=== PATIENT | female | born 1970 | race Caucasian/White ===

== ENCOUNTER → 2020-02-18 17:53 | Outpatient (CLI) | payer MEDICARE, MEDICAID, SELFPAY ==
[2020-02-18 18:24] LABS: Iron 20 ug/dL (37-170)
[2020-02-18 18:27] LABS: Basophils % 0.4 % (0.1-2.0); Eosinophils # 0.1 K/mm3 (0.0-0.4); Eosinophils % 1.5 % (0.1-12.0); Hematocrit 31.5 % (37.0-47.0); Hemoglobin 9.3 g/dL (12.2-16.2); Lymphocytes # 1.8 K/mm3 (0.7-4.5); Lymphocytes % 24.7 % (10-50); Mean Corpuscular HGB Conc 29.5 g/dL (31.8-35.4); Mean Corpuscular Hemoglobin 19.9 pg (27.0-31.2); Mean Corpuscular Volume 67.3 fl (81-99); Mean Platelet Volume 7.4 fl (7.4-10.4); Monocytes # 0.6 K/mm3 (0.1-1.0); Neutrophils # 4.9 K/mm3 (1.8-7.8); Neutrophils % 65.3 % (37.0-80.0); Platelet Count 666 K/mm3 (142-424); Red Blood Count 4.69 M/mm3 (4.20-5.40); Red Cell Distribution Width 21.6 % (11.5-17.5); White Blood Count 7.5 K/mm3 (4.8-10.8)
[2020-02-18 18:33] LABS: Total Iron Binding Capacity 483 ug/dL (265-497)
== END ==
PROVIDERS: Visit Provider Family Medicine
DX: D64.9 Anemia, unspecified (principal)
CPT/HCPCS: 83540; 83550; 85025

== ENCOUNTER → 2021-06-29 17:34 | Outpatient (CLI) | payer MEDICARE, MEDICAID, SELFPAY ==
[2021-06-29 18:28] LABS: Basophils # 0.1 K/mm3 (0-0.2); Basophils % 0.6 % (0.1-2.0); Eosinophils # 0.1 K/mm3 (0.0-0.4); Eosinophils % 1.1 % (0.1-12.0); Hematocrit 29.2 % (37.0-47.0); Hemoglobin 8.4 g/dL (12.2-16.2); Lymphocytes # 2.5 K/mm3 (0.7-4.5); Lymphocytes % 27.2 % (10-50); Mean Corpuscular HGB Conc 28.7 g/dL (31.8-35.4); Mean Corpuscular Hemoglobin 17.8 pg (27.0-31.2); Mean Corpuscular Volume 62.1 fl (81-99); Mean Platelet Volume 7.7 fl (7.4-10.4); Monocytes # 0.6 K/mm3 (0.1-1.0); Monocytes % 6.2 % (1.7-9.3); Neutrophils % 64.9 % (37.0-80.0); Platelet Count 796 K/mm3 (142-424); Red Cell Distribution Width 19.6 % (11.5-17.5); White Blood Count 9.2 K/mm3 (4.8-10.8)
[2021-06-29 20:07] LABS: Alanine Aminotransferase 16 U/L (12-78); Albumin Level 4.3 g/dl (3.5-5.0); Albumin/Globulin Ratio 1.3 (1.1-1.8); Alkaline Phosphatase 75 U/L (38-126); Anion Gap 12.7 mEq/L (5-15); Aspartate Amino Transferase 30 U/L (14-36); Blood Urea Nitrogen 12 mg/dl (7-17); Calcium 9.5 mg/dl (8.4-10.2); Carbon Dioxide 28 mmol/L (22.0-30.0); Chloride 103 mmol/L (98-107); Estimated Glomerular Filt Rate 88 ml/min (>60); GFR (African American) 106 ML/MIN (>60); Globulin 3.3 g/dL (1.3-3.2); Glucose 101 mg/dl (74-100); Potassium 3.7 mmoL/L (3.5-5.1); Sodium 140 mmol/L (136-145); Total Protein,Serum 7.6 g/dl (6.3-8.2)
[2021-06-29 20:11] LABS: Bilirubin,Total 0.1 mg/dl (0.2-1.3)
[2021-06-29 20:12] LABS: Iron 10 ug/dL (37-170)
[2021-06-29 20:39] LABS: Thyroid Stimulating Hormone 0.76 uIU/mL (0.465-4.68)
[2021-06-29 20:45] LABS: Total Iron Binding Capacity 528 ug/dL (265-497)
== END ==
PROVIDERS: Visit Provider Family Medicine
DX: Z87.828 Personal history of other (healed) physical injury and trauma (principal); Z00.00 Encounter for general adult medical examination without abnormal findings; F41.9 Anxiety disorder, unspecified; E61.1 Iron deficiency
CPT/HCPCS: 80053; 83540; 83550; 84443; 85025

== ENCOUNTER → 2022-01-12 06:14 | Outpatient (CLI) | payer MEDICARE, MEDICAID, SELFPAY ==
[2022-01-11 17:07] LABS: Basophils # 0.1 K/mm3 (0-0.2); Basophils % 0.9 % (0.1-2.0); Eosinophils # 0.1 K/mm3 (0.0-0.4); Eosinophils % 2.1 % (0.1-12.0); Hematocrit 32.6 % (37.0-47.0); Hemoglobin 9.5 g/dL (12.2-16.2); Mean Corpuscular Hemoglobin 18.7 pg (27.0-31.2); Mean Corpuscular Volume 64.5 fl (81-99); Mean Platelet Volume 7.6 fl (7.4-10.4); Monocytes # 0.5 K/mm3 (0.1-1.0); Monocytes % 7.3 % (1.7-9.3); Neutrophils # 3.9 K/mm3 (1.8-7.8); Neutrophils % 59.7 % (37.0-80.0); Platelet Count 635 K/mm3 (142-424); Red Blood Count 5.06 M/mm3 (4.20-5.40); Red Cell Distribution Width 22.7 % (11.5-17.5); White Blood Count 6.6 K/mm3 (4.8-10.8)
[2022-01-11 17:28] LABS: Chloride 108 mmol/L (98-107); Potassium 3.8 mmoL/L (3.5-5.1); Sodium 140 mmol/L (136-145)
[2022-01-11 17:30] LABS: Alanine Aminotransferase 16 U/L (12-78); Aspartate Amino Transferase 42 U/L (14-36); Blood Urea Nitrogen 17 mg/dl (7-17); Estimated Glomerular Filt Rate 105 ml/min (>60); GFR (African American) 127 ML/MIN (>60)
[2022-01-11 17:31] LABS: Albumin Level 3.9 g/dl (3.5-5.0); Albumin/Globulin Ratio 1.2 (1.1-1.8); Alkaline Phosphatase 85 U/L (38-126); Bilirubin,Total 0.3 mg/dl (0.2-1.3); Globulin 3.2 g/dL (1.3-3.2); Glucose 119 mg/dl (74-100); Iron 25 ug/dL (37-170); Total Protein,Serum 7.1 g/dl (6.3-8.2)
[2022-01-11 17:32] LABS: Anion Gap 12.8 mEq/L (5-15); Carbon Dioxide 23 mmol/L (22.0-30.0)
[2022-01-11 17:40] LABS: Total Iron Binding Capacity 487 ug/dL (265-497)
[2022-01-11 17:41] LABS: Total Iron Binding Capacity 472 ug/dL (265-497)
[2022-01-11 18:07] LABS: Ferritin 4.26 ng/ml (11.1-264)
== END ==
PROVIDERS: PCP Family Medicine; Visit Provider Family Medicine
DX: E61.1 Iron deficiency (principal); Z87.828 Personal history of other (healed) physical injury and trauma
CPT/HCPCS: 80053; 82728; 83540; 83550; 85025

== ENCOUNTER → 2022-12-13 23:00 | Outpatient (CLI) | payer MEDICARE, MEDICAID, SELFPAY ==
[2022-12-13 18:20] LABS: Chloride 105 mmol/L (98-107); Sodium 140 mmol/L (136-145)
[2022-12-13 18:21] LABS: Basophils % 0.5 % (0.1-2.0); Eosinophils # 0.1 K/mm3 (0.0-0.4); Eosinophils % 1.1 % (0.1-12.0); Hematocrit 41.6 % (37.0-47.0); Hemoglobin 13.5 g/dL (12.2-16.2); Lymphocytes # 2.4 K/mm3 (0.7-4.5); Lymphocytes % 32.8 % (10-50); Mean Corpuscular HGB Conc 32.5 g/dL (31.8-35.4); Mean Corpuscular Hemoglobin 28.8 pg (27.0-31.2); Mean Corpuscular Volume 88.6 fl (81-99); Monocytes # 0.5 K/mm3 (0.1-1.0); Monocytes % 6.4 % (1.7-9.3); Neutrophils # 4.4 K/mm3 (1.8-7.8); Neutrophils % 59.1 % (37.0-80.0); Platelet Count 479 K/mm3 (142-424); Red Cell Distribution Width 13.6 % (11.5-17.5); White Blood Count 7.4 K/mm3 (4.8-10.8)
[2022-12-13 18:22] LABS: Alanine Aminotransferase 22 U/L (12-78); Aspartate Amino Transferase 28 U/L (14-36); Blood Urea Nitrogen 11 mg/dl (7-17); Estimated Glomerular Filt Rate 75 ml/min (>60); GFR (African American) 90 ML/MIN (>60)
[2022-12-13 18:23] LABS: Albumin Level 4.1 g/dl (3.5-5.0); Albumin/Globulin Ratio 1.2 (1.1-1.8); Alkaline Phosphatase 87 U/L (38-126); Bilirubin,Total 0.4 mg/dl (0.2-1.3); Calcium 9.2 mg/dl (8.4-10.2); Carbon Dioxide 22 mmol/L (22.0-30.0); Globulin 3.3 g/dL (1.3-3.2); Glucose 84 mg/dl (74-100); Iron 76 ug/dL (37-170); Total Protein,Serum 7.4 g/dl (6.3-8.2)
[2022-12-13 18:33] LABS: Total Iron Binding Capacity 362 ug/dL (265-497)
== END ==
PROVIDERS: PCP Family Medicine; Visit Provider Family Medicine
DX: I10 Essential (primary) hypertension (principal); D50.9 Iron deficiency anemia, unspecified
CPT/HCPCS: 80053; 83540; 83550; 85025

== ENCOUNTER 2025-05-13 10:21 | Outpatient (CLI) | payer MEDICARE, MEDICAID, SELFPAY ==
[2025-05-13 15:08] LABS: Hematocrit 35.5 % (37.0-47.0); Hemoglobin 12.0 g/dL (12.2-16.2); Immature Granulocytes % 0.2 %; Mean Corpuscular HGB Conc 33.8 g/dL (31.8-35.4); Mean Corpuscular Hemoglobin 30.4 pg (27.0-31.2); Mean Corpuscular Volume 89.9 fl (81-99); Nucleated Red Blood Cells % 0 %; Platelet Count 468 K/mm3 (142-424); Red Blood Count 3.95 M/mm3 (4.20-5.40); Red Cell Distribution Width-SD 44.5 fL; White Blood Count 6.0 K/mm3 (4.8-10.8)
[2025-05-13 16:38] LABS: Albumin Level 3.9 g/dl (3.5-5.0); Chloride 108 mmol/L (98-107); Potassium 3.7 mmoL/L (3.5-5.1); Sodium 139 mmol/L (136-145)
[2025-05-13 16:41] LABS: Alanine Aminotransferase 19 U/L (12-78); Albumin/Globulin Ratio 1.6 (1.1-1.8); Alkaline Phosphatase 98 U/L (38-126); Anion Gap 11.7 mEq/L (5-15); Aspartate Amino Transferase 26 U/L (14-36); Bilirubin,Total 0.5 mg/dl (0.2-1.3); Blood Urea Nitrogen 14 mg/dl (7-17); Carbon Dioxide 23 mmol/L (22.0-30.0); Cholesterol 134 mg/dl (140-200); Creatinine,Serum 0.80 mg/dl (0.52-1.04); Estimated Glomerular Filt Rate 74 ml/min (>60); GFR (African American) 90 ML/MIN (>60); Globulin 2.4 g/dL (1.3-3.2); Iron 51 ug/dL (37-170); Total Protein,Serum 6.3 g/dl (6.3-8.2); Triglycerides 133 mg/dl (30-150)
[2025-05-13 16:42] LABS: Calcium 8.7 mg/dl (8.4-10.2); Glucose 122 mg/dl (74-100); HDL Cholesterol 58 mg/dl (40-60)
[2025-05-13 16:53] LABS: Total Iron Binding Capacity 256 ug/dL (265-497)
--- OUTSIDE RECORDS SUMMARY | 2025-05-17 10:27 | XMS_ITS | Clinical Summary ---
Author Organization [facility] Address [address] [facility] [place] [address] Phone Care Team Providers Care Summer Camp Counselor Name Role Phone Roni De Dios MD Primary Care Provider [phone] Allergies No known active allergies Medications nebivolol (BYSTOLIC) 5 mg Oral Tablet Take 5 mg by mouth nightly. Active cyclobenzaprine (FLEXERIL) 10 mg Oral Tablet Take 10 mg by mouth daily. Active naproxen (NAPROSYN) 500 mg Oral Tablet Take 500 mg by mouth every 12 hours as needed for Pain. Active atorvastatin (LIPITOR) 20 mg Oral Tablet Take 20 mg by mouth daily. Active albuterol (PROVENTIL HFA;VENTOLIN HFA) 90 mcg/actuation Inhl HFA Aerosol Inhaler Inhale 2 Puffs into the lungs every 6 hours as needed for Wheezing. Active HYDROcodone-acet aminophen (NORCO) 5-325 mg Oral Tablet Take 1-2 Tabs by mouth every 4 hours as needed for Pain. 20 Tab 0 01/17/2015 Active Surgical History Surgery Date Site/Laterality Comments HIP SURGERY 1973 age 3 KNEE SURGERY Right as a teenager Medical History Medical History Date Comments Asthma Rapid heart beat placed on bysto lic Hyperlipidemia Acid reflux Arthritis knee Seasonal allergies Skin cancer forehead Family History Medical History Relation Name Comments Unknown Father Anesth Problems Neg Hx Relation Name Status Comments Father Mother Alive Social History Tobacco Use Types Packs/Day Years Used Date Smoking Tobacco: Never Smokeless Tobacco: Never Alcohol Use Standard Drinks/Week Comments Yes 0 (1 standard drink = 0.6 oz pur e alcohol) occassional Comments No Sex and Gender Information Value Date Recorded Sex Assigned at Not on file Legal Sex Female 10:17 PM EDT Gender Identity Not on file Sexual Orientation Not on file Last Filed Vital Signs Vital Sign Reading Time Taken Comments Blood Pressure 107/73 01/17/2015 9:31 AM EDT Pulse 93 01/17/2015 9:31 AM EDT Temperature 36.4 C (97.6 F) 01/17/2015 9:13 AM EDT Respiratory Rate 20 01/17/2015 9:31 AM EDT Oxygen Saturation 98% 01/17/2015 9:31 AM EDT Inhaled Oxygen Concentration - - Weight 71.7 kg (158 lb 1 oz) 01/17/2015 6:57 AM EDT Height 154.9 cm (5' 1 ) 01/13/2015 1:09 PM EDT Body Mass Index 29.87 01/13/2015 1:09 PM EDT Plan of Treatment Health Maintenance Due Date Last Done Comments Wellness Exam Medicare 1971 DTaP/TDaP/Td (1 - Tdap) 1987 Hepatitis B Vaccine (1 of 3 - 19+ 3-dose series) 1987 Cervical Cancer Screening 1989 Pap Smear 1989 HPV/Pap Cotest 1998 Cologuard 2013 FIT 2013 Sigmoidoscopy 2013 Virtual Colonography 2013 Breast Cancer Screening 02/28/2017 02/28/2015 Pneumococcal Vaccine 50+ (1 of 1 - PCV) 2018 Zoster (1 of 2) 2018 Colon Cancer Screening 04/16/2022 Colonoscopy 04/16/2022 04/16/2019 COVID-19 Vaccine (1 - 2024-2 6 season) 2025 Influenza Vaccine (#1) 2025 Meningococcal B Vaccine Aged Out No l onger eligible based on patient's age to complete this topic Procedures Procedure Name Priority Date/Time Associated Diagnosis Comments MM MAMMO DIGITAL SCREENING W CAD BILAT Routine 02/28/2015 12:58 PM EDT Other screening mammogram from Last 3 Months or Most Recently Relevant to Health Maintenance Results * MM MAMMO DIGITAL SCREENING W CAD BILAT (02/28/2015 12:58 PM EDT) Anatomical Region Laterality Modality Breast Bilateral Mammography 03/07/2015 10:4 0 AM EDT Impressions 03/10/2015 7:35 AM EDT : Incomplete-need additional imaging evaluation (IDR-Coktkthn-4) ~ RECOMMENDATION: Special view mammogram and ultrasound of the left breast. ~ * The patient with a palpable abnormality, unexplained by breast imaging, should be managed on clinical basis by the attending physician. * Breast imaging has a false negative rate of 15%. * The patient was notified by mail of the results of this examination. *The patient's information was entered into a reminder system with a target due date for the next mammogram. The mammogram was reviewed by a Radiologist and CAD. Narrative 03/10/2015 7:35 AM EDT Procedure:MM MAMMO DIGITAL SCREENING W CAD BILAT ~ Reason for exam: screening (asymptomatic). ~ MM MAMMO DIG SCREEN CAD BILAT Bilateral CC and MLO view(s) were taken. The breast tissue is heterogeneously dense. This may lower the sensitivity of mammography. There are benign appearing 1-2 cm oval densities with obscured margins in the left breast 6 and 12 o'clock positions. History of prior cysts on left documented by ultrasound. Compared to prior studies the most recent being 5--12. ~ Roni De Dios MD [facility] ORDER[facility]LES Final Result from Last 3 Months or Most Recently Relevant to Health Maintenance Insurance [place] [address] MEDICAID [place] Advance Directives For more information, please contact: [phone] * Full Code (Latest Code Status on File) Date Activated Date Inactivated Comments 01/17/2015 9:19 AM 01/17/2015 1:48 PM Care Teams Summer Camp Counselor Relationship Specialty Start Date End Date Roni De Dios MD PCP - General Family Medicine 12/27/14
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
--- OUTSIDE RECORDS SUMMARY | 2025-05-17 10:27 | XMS_ITS | Data Portability ---
Author Organization [facility] Address [address] [place] [address] Care Team Providers Care Stationary Plant Operators Name Role Phone KIMBERLYOMA Resendiz Primary Care Provider Assessment No assessment recorded. Plan of Treatment Reminders Order Date Submit Date Provider Last Modified By Organization Details Last Modified Time Details Appointments None recorde d. Lab None recorde d. Referral None recorde d. Procedures None recorde d. Surgeries None recorde d. Imaging XR, wrist 025 10/14/19 25 [email or web address] [facility] [address] [place] [address] [place], [address], 11:50:29 Medication Orders None recorde d. Patient TargetsNo targets recorded. Patient InstructionsNo instructions recorded. Reason for Referral None Reported. Results Created Date Observation Date Name Description Value Unit Range Abnormal Flag Note LastModifiedBy Organization Detail LastModifiedTime 10/14/19 25 XR, wrist No observ ation record ed. CHERRY [address] [place], [address], 10/13/2024 11:21:31 Result Notes None recorded. Procedures Surgical History Date Name Laterality Status Provider Name and Address Organization Details Recorded Time 5 Other completed Zabrina Wilbert [facility] 09/29/2024 10:08:13 9 Back Surgery completed [facility] 09/29/2024 10:08:13 Imaging Results None recorded. Procedure Notes None recorded. Medical Equipment None Reported. Allergies No known drug allergies Medications Name Sig Start Date Stop Date Status Note LastModified by Organization Details LastModified Time cyclobenzaprine 10 mg tablet TAKE 1 TABLET BY MOUTH ONCE DAILY NEEDED active Not Available Not Available No t Available bisoprolol fumarate 10 mg tablet TAKE 1 TABLET BY MOUTH ONCE DAILY active Not Available Not Available No t Available cefadroxil 500 mg capsule TAKE 1 CAPSULE BY MOUTH TWICE DAILY active Not Available Not Available No t Available buspirone 10 mg tablet TAKE 1 TABLET BY MOUTH THREE TIMES DAILY NEEDED FOR ANXIETY active Not Available Not Available No t Available desvenlafaxine succinate ER 25 mg tablet,extended release 24 hr TAKE 1 TABLET BY MOUTH ONCE DAILY active Not Available Not Available No t Available Vitals None Recorded Social History None recorded. Functional Status None recorded. Mental Status None recorded. Family History Nothing Reported. Medical History Condition Response Heart Disease Y Arthritis Y Gynecological HistoryNo gynecological history recorded. Obstetrics History GPAL:G 0 P 0 0 0 0 Past Encounters Encounter ID Performer Location Encounter Start Date Encounter Closed Date Diagnosis/Indication Diagnosis SNOMED-CT Code Diagnosis ICD10 Code Diagnosis IMO Codes Diagnosis Note [id number] RICA [facility]ARRO [facility] [address] [address] 09/29/2024 09:39:37 09/29/2024 10:33:00 Follow-up orthopedic assessment 803410022 Z47.89 [id number] Closed fra cture of distal end of left radius 2487594668 7451443 S52.502A [id number] RICA PIZARRO [address] [address] 10/13/2024 10:07:48 10/13/2024 11:31:59 Follow-up orthopedic assessment 991434094 Z47.89 [id number] Closed fra cture of distal end of left radius 2873730408 5425663 S52.502A [id number] Health Concerns Section Related Observation LastModified by Organization Detai ls LastModified Time None Recorded Concern Status LastModified by Organization Details LastModified Time None Recorded Advance Directives Directive None Recorded Payers Insurance Date Sequence Insurance Name Policy Number Policy Oliveira Covered Member ID Oliveira Member ID Guarantor Name 10/10/2024 2 MEDICAID-[facility] CHOICES - FFS/TRADITION AL Shanelle Narayanan [id number] Shanelle Narayanan 09/29/2024 1 [facility] (MEDICARE REPLACEMENT/A DVANTAGE - HMO) DANO Narayanan [id number] Shanelle Narayanan 10/16/2024 1 [facility] - DUAL ELIGIBLE (MEDICARE REPLACEMENT/A DVANTAGE - HMO) DANO Narayanan [id number] Shanelle Narayanan Notes Date Note Type Note Provider Name and Address Organization Details Recorded Time 09/29/2024 text/html Patient presents in the office today 3.5 weeks post op. DOS: 09.04.24 Left Open reduction internal fixation of distal radius fracture with Synthes locking volar variable angule plate with excisional debridement and irrigation debridement of open distal radius fracture. She didn't come in for her 2 week post op. She reports she was not informed to come back at 2 weeks? Her steri-strips are intact. No redness or s/s of infection- She reports no pain-E2SF LORETTA COBOS NP [address] [facility],[address], [place], [address], [facility] 09/29/2024 10:49:46 10/13/2024 text/html This 54 year old female patient presents in the office 5.5 weeks post op LEFT Open reduction internal fixation of distal radius fracture with Synthes locking volar variable angule plate with excisional debridement and irrigation debridement of open distal radius fracture that was completed on 09.04.24. She is doing well. Incision healed well without signs of infection. She has decent range of motion and has been doing at home exercises. She reports minimal to no pain. X-rays in the office today. CHE3 LORETTA COBOS NP [address] [facility],[address], [place], [address], [facility] 10/13/2024 11:30:07 OBGyn Episode No OBEpisode recorded.
--- OUTSIDE RECORDS SUMMARY | 2025-05-17 10:28 | XMS_ITS | Data Portability ---
Author Organization [facility] Address [address] [place] [address] Assessment Encounter Date Assessment Date Assessment LastModified by Organization Details LastModified Time 10/25/2017 10/25/2017 Removalof shayy [email or web address] Not available 11/22/2017 11:10:16 02/03/2018 02/03/2018 Intentional weight loss exercise diet situational stressors dFA exam w/o change Rx Lorazepam 0.5 mg #15 refill x 3 [email or web address] Not available 02/24/2018 14:27:07 Plan of Treatment Reminders Order Date Submit Date Provider Last Modified By Organization Details Last Modified Time Details Appointments None recorde d. Lab TIBC (total iron-bi nding capacit y), serum 2023 024 CHERRY [facility], [address], [address], [place], [address], 4 10:08:20 ferriti n, serum or plasma 2023 024 CHERRY [facility], [address], [address] [address], [place], [address], 4 10:08:22 vitamin D, 25-hydr oxy, total, serum 2023 024 CHERRY [facility], [address], [address] [address], [place], [address], 4 10:08:21 HbA1c (hemogl obin A1c), blood 2023 024 CHERRY [facility], [address], [address] [address], [place], [address], 4 10:08:21 TSH + free T4, serum 2023 024 CHERRY [facility], [address], [place] [address], [place], [address], 4 10:08:18 CMP, serum or plasma 2023 024 CHERRY [facility], [address], [address] [address], [place], [address], 4 10:08:19 CBC w/ auto diff 2023 024 CHERRY [facility], [address], [address] [address], [place], [address], 4 10:08:19 lipid panel, serum 2023 024 CHERRY [facility], [address], [address] [address], [place], [address], 4 10:08:20 lipid panel, serum 2023 024 [email or web address] [facility], [address], [address] [address], [place], [address], 4 14:14:46 vitamin D, 25-hydr oxy, total, serum 2023 024 [facility], [address], [place] [address], [place], [address], 4 14:14:46 HbA1c (hemogl obin A1c), blood 2023 024 [email or web address] [facility], [address], [address] [address], [place], [address], 4 14:14:47 TSH + free T4, serum 2023 024 [email or web address] [facility], [address], [address] [address], [place], [address], 4 14:14:47 CMP, serum or plasma 2023 024 [facility], [address], [address] [address], [place], [address], 4 14:14:46 CBC w/ auto diff 2023 024 [email or web address] [facility], [address], [address] [address], [place], [address], 4 14:14:46 Referral [facility] health worker referra l 2023 024 [email or web address] Not available 4 08:52:57 clinical mental health counselor ing referra l 2023 024 [email or web address] Kilo Solano [facility], [address] [place] [address], [address], 4 18:20:57 Procedures None recorde d. Surgeries None recorde d. Imaging None recorde d. Medication Orders bisopro lol fumarat e 10 mg tablet [address] [facility] [address] [facility], [address] [place], [address], 4 09:39:48 buspiro ne 10 mg tablet [address] [facility] [address] [facility], [address] [place], [address], 4 09:39:48 cyclobe nzaprin e 5 mg tablet [address] [facility], [address] [place], [address], 4 09:39:48 albuter ol sulfate HFA 90 mcg/act uation aerosol inhaler 2023 024 [facility], [address] [place], [address], 4 14:58:49 cyclobe nzaprin e 5 mg tablet [address] [facility] [address] [facility], [address] [place] [address], [address], 4 20:14:58 buspiro ne 10 mg tablet 2023 024 [facility], [address] [place] [address], [address], 4 14:58:50 bisopro lol fumarat e 10 mg tablet 2023 024 [facility], [address] [place] [address], [address], 4 14:58:53 cyclobe nzaprin e 5 mg tablet 2022 023 [facility], [address] [place] [address], [address], 3 15:50:29 buspiro ne 10 mg tablet 2022 023 [facility], [address] [place] [address], [address], 3 15:50:29 bisopro lol fumarat e 10 mg tablet 2022 023 [facility], [address] [place] [address], [address], 3 15:50:26 lorazep am 0.5 mg tablet 2017 018 [facility], [address] [place] [address], [address], 8 14:28:08 Patient TargetsNo targets recorded. Patient Instructions Encounter Date Encounter Id Patient Instructions Last Modified By Organization Details Last Modified Time 02/03/2018 [id number] A healthy lifestyle: care instructions [email or web address] Not available 02/24/2018 18:31:28 high blood pressure: care instructions sneus Not available 02/24/2018 18:31:28 learning about high blood pressure sneus Not available 02/24/2018 18:31:28 joint pain: care instructions sneus Not available 02/24/2018 18:31:28 05/02/2023 [id number] high blood pressure: care instructions [email or web address] Not available 05/02/2023 15:50:21 learning about high blood pressure [email or web address] Not available 05/02/2023 15:50:21 close FU for fasting labs [email or web address] Not available 05/05/2023 21:25:30 All questions answered and pt/guardian satisfied with treatment plan. Call with changes Discussed importance of diet and exercise Routine health maintenance reviewed Meds reviewed with patient today, side effects discussed and patient voices understanding of this Chronic conditions are stable Continue current medications as prescribed [email or web address] Not available 05/05/2023 21:25:38 08/01/2023 [id number] body mass index: care instructions [email or web address] Not available 08/01/2023 14:56:51 wheezing or bronchoconstrictio n: care instructions [email or web address] Not available 08/01/2023 14:58:42 high blood pressure: care instructions [email or web address] Not available 08/01/2023 14:56:51 learning about high blood pressure [email or web address] Not available 08/01/2023 14:56:51 grief (actual/anticipate d): care instructions Not available 08/01/2023 14:56:51 return for fasti ng labs at pt convenience (prior to FU) [email or web address] Not available 08/01/2023 20:27:04 All questions answered and pt/guardian satisfied with treatment plan. Call with changes Discussed importance of diet and exercise Routine health maintenance reviewed Meds reviewed with patient today, side effects discussed and patient voices understanding of this Chronic conditions are stable Continue current medications as prescribed [email or web address] Not available 08/01/2023 15:00:20 08/22/2023 [id number] high blood pressure: care instructions [email or web address] Not available 08/22/2023 09:39:48 learning about high blood pressure Not available 08/22/2023 09:39:48 All questions answered and pt/guardian satisfied with treatment plan. Call with changes Discussed importance of diet and exercise Routine health maintenance reviewed Meds reviewed with patient today, side effects discussed and patient voices understanding of this Chronic conditions are stable Continue current medications as prescribed [email or web address] Not available 08/25/2023 21:01:38 Reason for Referral Counseling Referral for Marcela velasquez Referring Physician: Stevan Goodwin, Family Medicine, Encounter Date: 08/01/2023 Community Health Worker Refe rral for Financial insecurity Referring Physician: Stevan Goodwin Family Medicine, Encounter Date: 08/01/2023 Results Created Date Observation Date Name Description Value Unit Range Abnormal Flag Note LastModifiedBy Organization Detail LastModifiedTime 10/19/19 18 10/28/2017 patho logy study . Commsalud t Mater ial submi tted: . RIGHT FOREH EAD Not Available [facility] ([facility]) [address] [place], [address], 10/28/2017 12:35:55 10/19/19 18 10/28/2017 patho logy study . Commsalud t Clini natalee histo ry: . D49.2 Not Available [facility] ([facility]) [address] [place], [address], 10/28/2017 12:35:55 10/19/19 18 10/28/2017 patho logy study . Commsalud t Diagn osis: Skin biops y, right foreh ead: - Sebor rheic kerat osis. RB/sd MERRY/0 2017 Not Available [facility] ([facility]) [address] [facility], [place], [address], 10/28/2017 12:35:55 10/19/19 18 10/28/2017 patho logy study . Commen t Dru garcia d: . Ethan vang MD, Patho logis t Not Available [facility] ([facility]) [address] [facility], [place], [address], 10/28/2017 12:35:55 10/19/19 18 10/28/2017 patho logy study . Commsalud t Gross descr iptio n: . Recei shelbie in forma kerry label ed fore head is a pale quiñones skin punch biops y, [address] and 2 mm in depth with a 4 x 4 x 1 mm light brown papul e on the surfa ce. Bisec susan and entir shivani submi tted in one casse tte. AG/ds s AMA/D ST Not Available [facility] ([facility]) [address] [facility], [place], [address], 10/28/2017 12:35:55 10/19/19 18 10/28/2017 patho logy study . Commen t Micro scopi c: . There is hyper kerat osis, papil lomat osis, acant hosis , and horn pseud ocyst s. There is no atypi a. Not Available [facility] ([facility]) [address] [facility], [place], [address], 10/28/2017 12:35:55 10/19/19 18 10/28/2017 patho logy study . Commsalud t Patho logis t provi ded ICD-1 0: L82.1 Not Available [facility] ([facility]) [address] [facility], [place], [address], 10/28/2017 12:35:55 10/19/19 18 10/28/2017 patho logy study . Ace marrero CPT . 62461 1 Not Available [facility] ([facility]) [address] [facility], [place], [address], 10/28/2017 12:35:55 08/22/19 24 08/23/2023 TSH+F REE T4 TSH 1.680 uIU/m L 0.450- 4.500 Not Available [facility] ([facility]) [address] [facility], [place], [address], 08/23/2023 10:08:18 08/22/19 24 08/23/2023 TSH+F REE T4 T4,free(dire ct) 0.96 NG/dL 0.82-1 .77 Not Available [facility] ([facility]) [address] [facility], [place], [address], 08/23/2023 10:08:18 08/22/19 24 08/23/2023 CBC WITH DIFFE RENTI AL/PL ATELE T WBC 5.9 x10e3 /uL 3.4-10 .8 Not Available [facility] ([facility]) [address] [place], [address], 08/23/2023 10:08:19 08/22/19 24 08/23/2023 CBC WITH DIFFE RENTI AL/PL ATELE T RBC 4.39 x10e6 /uL 3.77-5 .28 Not Available [facility] ([facility]) [address] [place], [address], 08/23/2023 10:08:19 08/22/19 24 08/23/2023 CBC WITH DIFFE RENTI AL/PL ATELE T hemoglobin 12.1 g/dL 11.1-1 5.9 Not Available [facility] ([facility]) [address] [facility], [place], [address], 08/23/2023 10:08:19 08/22/19 24 08/23/2023 CBC WITH DIFFE RENTI AL/PL ATELE T hematocrit 38.4 % 34.0-4 6.6 Not Available [facility] ([facility]) [address] [facility], [place], [address], 08/23/2023 10:08:19 08/22/19 24 08/23/2023 CBC WITH DIFFE RENTI AL/PL ATELE T MCV 88 fL 79-97 Not Available [facility] ([facility]) [address] [facility], [place], [address], 08/23/2023 10:08:19 08/22/19 24 08/23/2023 CBC WITH DIFFE RENTI AL/PL ATELE T MCH 27.6 pg 26.6-3 3.0 Not Available [facility] ([facility]) [address] [facility], [place], [address], 08/23/2023 10:08:19 08/22/19 24 08/23/2023 CBC WITH DIFFE RENTI AL/PL ATELE T MCHC 31.5 g/dL 31.5-3 5.7 Not Available [facility] ([facility]) [address] [facility], [place], [address], 08/23/2023 10:08:19 08/22/19 24 08/23/2023 CBC WITH DIFFE RENTI AL/PL ATELE T RDW 13.8 % 11.7-1 5.4 Not Available [facility] ([facility]) [address] [facility], [place], [address], 08/23/2023 10:08:19 08/22/19 24 08/23/2023 CBC WITH DIFFE RENTI AL/PL ATELE T platelets 383 x10e3 /uL 150-45 0 Not Available [facility] ([facility]) [address] [facility], [place], [address], 08/23/2023 10:08:19 08/22/19 24 08/23/2023 CBC WITH DIFFE RENTI AL/PL ATELE T neutrophils 62 % not estab. Not Available [facility] ([facility]) [address] [facility], [place], [address], 08/23/2023 10:08:19 08/22/19 24 08/23/2023 CBC WITH DIFFE RENTI AL/PL ATELE T lymphs 27 % not estab. Not Available [facility] ([facility]) [address] [facility], [place], [address], 08/23/2023 10:08:19 08/22/19 24 08/23/2023 CBC WITH DIFFE RENTI AL/PL ATELE T monocytes 9 % not estab. Not Available [facility] ([facility]) [address] [facility], [place], [address], 08/23/2023 10:08:19 08/22/19 24 08/23/2023 CBC WITH DIFFE RENTI AL/PL ATELE T eos 1 % not estab. Not Available [facility] ([facility]) [address] [facility], [place], [address], 08/23/2023 10:08:19 08/22/19 24 08/23/2023 CBC WITH DIFFE RENTI AL/PL ATELE T basos 1 % not estab. Not Available [facility] ([facility]) [address] [facility], [place], [address], 08/23/2023 10:08:19 08/22/19 24 08/23/2023 CBC WITH DIFFE RENTI AL/PL ATELE T immature cells SCHEDULING ASSISTANT Not Available [facility] ([facility]) [address] [facility], [place], [address], 08/23/2023 10:08:19 08/22/19 24 08/23/2023 CBC WITH DIFFE RENTI AL/PL ATELE T neutrophils (absolute) 3.7 x10e3 /uL 1.4-7. 0 Not Available [facility] ([facility]) [address] [facility], [place], [address], 08/23/2023 10:08:19 08/22/19 24 08/23/2023 CBC WITH DIFFE RENTI AL/PL ATELE T lymphs (absolute) 1.6 x10e3 /uL 0.7-3. 1 Not Available [facility] ([facility]) [address] [place], [address], 08/23/2023 10:08:19 08/22/19 24 08/23/2023 CBC WITH DIFFE RENTI AL/PL ATELE T monocytes(ab solute) 0.5 x10e3 /uL 0.1-0. 9 Not Available [facility] ([facility]) [address] [facility], [place], [address], 08/23/2023 10:08:19 08/22/19 24 08/23/2023 CBC WITH DIFFE RENTI AL/PL ATELE T eos (absolute) 0.1 x10e3 /uL 0.0-0. 4 Not Available [facility] ([facility]) [address] [facility], [place], [address], 08/23/2023 10:08:19 08/22/19 24 08/23/2023 CBC WITH DIFFE RENTI AL/PL ATELE T baso (absolute) 0.0 x10e3 /uL 0.0-0. 2 Not Available [facility] ([facility]) [address] [place], [address], 08/23/2023 10:08:19 08/22/19 24 08/23/2023 CBC WITH DIFFE RENTI AL/PL ATELE T immature granulocytes 0 % not estab. Not Available [facility] ([facility]) [address] [place], [address], 08/23/2023 10:08:19 08/22/19 24 08/23/2023 CBC WITH DIFFE RENTI AL/PL ATELE T immature grans (abs) 0.0 x10e3 /uL 0.0-0. 1 Not Available [facility] ([facility]) [address] [facility], [place], [address], 08/23/2023 10:08:19 08/22/19 24 08/23/2023 CBC WITH DIFFE RENTI AL/PL ATELE T NRBC SCHEDULING ASSISTANT Not Available [facility] ([facility]) [address] [facility], [place], [address], 08/23/2023 10:08:19 08/22/19 24 08/23/2023 CBC WITH DIFFE RENTI AL/PL ATELE T hematology comments: SCHEDULING ASSISTANT Not Available [facility] ([facility]) [address] [facility], [place], [address], 08/23/2023 10:08:19 08/22/19 24 08/23/2023 COMP. METAB OLIC PANEL (14) glucose 75 mg/dL 70-99 Not Available [facility] ([facility]) [address] [facility], [place], [address], 08/23/2023 10:08:19 08/22/19 24 08/23/2023 COMP. METAB OLIC PANEL (14) BUN 12 mg/dL 6-24 Not Available [facility] ([facility]) [address] [facility], [place], [address], 08/23/2023 10:08:19 08/22/19 24 08/23/2023 COMP. METAB OLIC PANEL (14) creatinine 0.73 mg/dL 0.57-1 .00 Not Available [facility] ([facility]) [address] [facility], [place], [address], 08/23/2023 10:08:19 08/22/19 24 08/23/2023 COMP. METAB OLIC PANEL (14) eGFR 97 mL/mi n/1.7 3 >59 Not Available [facility] ([facility]) [address] [facility], [place], [address], 08/23/2023 10:08:19 08/22/19 24 08/23/2023 COMP. METAB OLIC PANEL (14) BUN/creatini ne ratio 16 9-23 Not Available [facility] ([facility]) [address] [facility], [place], [address], 08/23/2023 10:08:19 08/22/19 24 08/23/2023 COMP. METAB OLIC PANEL (14) sodium 139 mmol/ L 134-14 4 Not Available [facility] ([facility]) [address] [facility], [place], [address], 08/23/2023 10:08:19 08/22/19 24 08/23/2023 COMP. METAB OLIC PANEL (14) potassium 4.0 mmol/ L 3.5-5. 2 Not Available [facility] ([facility]) [address] [facility], [place], [address], 08/23/2023 10:08:19 08/22/19 24 08/23/2023 COMP. METAB OLIC PANEL (14) chloride 102 mmol/ L 96-106 Not Available [facility] ([facility]) [address] [facility], [place], [address], 08/23/2023 10:08:19 08/22/19 24 08/23/2023 COMP. METAB OLIC PANEL (14) carbon dioxide, total 22 mmol/ L 20-29 Not Available [facility] ([facility]) [address] [facility], [place], [address], 08/23/2023 10:08:19 08/22/19 24 08/23/2023 COMP. METAB OLIC PANEL (14) calcium 8.7 mg/dL 8.7-10 .2 Not Available [facility] ([facility]) [address] [place], [address], 08/23/2023 10:08:19 08/22/19 24 08/23/2023 COMP. METAB OLIC PANEL (14) protein, total 6.2 g/dL 6.0-8. 5 Not Available [facility] ([facility]) [address] [place], [address], 08/23/2023 10:08:19 08/22/19 24 08/23/2023 COMP. METAB OLIC PANEL (14) albumin 3.5 g/dL 3.8-4. 9 below low normal Not Available [facility] ([facility]) [address] [place], [address], 08/23/2023 10:08:19 08/22/19 24 08/23/2023 COMP. METAB OLIC PANEL (14) globulin, total 2.7 g/dL 1.5-4. 5 Not Available [facility] ([facility]) [address] [place], [address], 08/23/2023 10:08:19 08/22/19 24 08/23/2023 COMP. METAB OLIC PANEL (14) A/G ratio 1.3 1.2-2. 2 Not Available [facility] ([facility]) [address] [place], [address], 08/23/2023 10:08:19 08/22/19 24 08/23/2023 COMP. METAB OLIC PANEL (14) bilirubin, total 0.3 mg/dL 0.0-1. 2 Not Available [facility] ([facility]) [address] [place], [address], 08/23/2023 10:08:19 08/22/19 24 08/23/2023 COMP. METAB OLIC PANEL (14) alkaline phosphatase 80 IU/L 44-121 Not Available [facility] ([facility]) [address] [place], [address], 08/23/2023 10:08:19 08/22/19 24 08/23/2023 COMP. METAB OLIC PANEL (14) AST (SGOT) 15 IU/L 0-40 Not Available [facility] ([facility]) [address] [facility] [place], [address], 08/23/2023 10:08:19 08/22/19 24 08/23/2023 COMP. METAB OLIC PANEL (14) ALT (SGPT) 9 IU/L 0-32 Not Available [facility] ([facility]) [address] [facility] [place], [address], 08/23/2023 10:08:19 08/22/19 24 08/23/2023 LIPID PANEL cholesterol, total 158 mg/dL 100-19 9 Not Available [facility] ([facility]) [address] [place], [address], 08/23/2023 10:08:20 08/22/19 24 08/23/2023 LIPID PANEL triglyceride s 124 mg/dL 0-149 Not Available [facility] ([facility]) [address] [place], [address], 08/23/2023 10:08:20 08/22/19 24 08/23/2023 LIPID PANEL HDL cholesterol 50 mg/dL >39 Not Available [facility] ([facility]) [address] [place], [address], 08/23/2023 10:08:20 08/22/19 24 08/23/2023 LIPID PANEL VLDL cholesterol natalee 22 mg/dL 5-40 Not Available [facility] ([facility]) [address] [place], [address], 08/23/2023 10:08:20 08/22/19 24 08/23/2023 LIPID PANEL LDL chol calc (nih) 86 mg/dL 0-99 Not Available [facility] ([facility]) [address] [facility] [place], [address], 08/23/2023 10:08:20 08/22/19 24 08/23/2023 LIPID PANEL comment: SCHEDULING ASSISTANT Not Available [facility] ([facility]) [address] [facility] [place], [address], 08/23/2023 10:08:20 08/22/19 24 08/23/2023 IRON AND TIBC iron bind.cap.(TI BC) 316 ug/dL 250-45 0 Not Available [facility] ([facility]) [address] [facility] [place], [address], 08/23/2023 10:08:20 08/22/19 24 08/23/2023 IRON AND TIBC UIBC 261 ug/dL 131-42 5 Not Available [facility] ([facility]) [address] [facility] [place], [address], 08/23/2023 10:08:20 08/22/19 24 08/23/2023 IRON AND TIBC iron 55 ug/dL 27-159 Not Available [facility] ([facility]) [address] [facility] [place], [address], 08/23/2023 10:08:20 08/22/19 24 08/23/2023 IRON AND TIBC iron saturation 17 % 15-55 Not Available [facility] ([facility]) [address] [place], [address], 08/23/2023 10:08:20 08/22/19 24 08/23/2023 HEMOG LOBIN A1C hemoglobin A1C 5.4 % 4.8-5. 6 Predi abete s: 5.7 - 6.4 Diabe corey: >6.4 Glyce cynthia contr ol for adult s with diabe corey: <7.0 Not Available [facility] ([facility]) [address] [place], [address], 08/23/2023 10:08:21 08/22/19 24 08/23/2023 VITAM IN D, 25-HY DROXY vitamin D, 25-hydroxy 23.9 NG/mL 30.0-1 00.0 below low normal Vitam in D defic iency has been defin ed by the Insti tute of Medic ine and an Endoc rine Socie ty pract ice guide line as a level of serum 25-OH vitam in D less than 20 ng/mL (1,2) . The Endoc rine Socie ty went on to furth er defin e vitam in D insuf ficie ncy as a level betwe en 21 and 29 ng/mL (2). 1. IOM (Inst itute of Medic ine). 2009. Raymond ry refer ence yanely es for calci um and D. Ankit browne [place]: [facility] . 2. Kevin mensah [place], Stephy cervantes [place], Jazmine off-F errar i TAY, et al. Evalu ation , treat ment, and preve ntion of vitam in D defic iency : an Endoc rine Socie ty clini natalee pract ice guide line. JCEM. 2010; 96(7) :1911 -30. Not Available [facility] ([facility]) [address] [place], [address], 08/23/2023 10:08:21 08/22/19 24 08/23/2023 AYLEEN TIN ferritin 51 NG/mL 15-150 Not Available [facility] ([facility]) [address] [place], [address], 08/23/2023 10:08:22 08/22/19 24 08/23/2023 PLELUIS E NOTE please note Commen t The date and/o r time of colle ction was not indic ated on the requi sitio n as requi red by state and vonnie al law. The date of recei pt of the speci men was used as the colle ction date if not suppl ied. Not Available [facility] ([facility]) [address] [place], [address], 08/23/2023 10:08:22 Result Notes None recorded. Problems Name Problem SNOMED Code Status Onset Date Resolution Date Notes Provider Name and Address Organization Details Recorded Time Essential hypertensio n 98929219 Active 2016 Celestina Mitchell null, [place] - [facility] 7 09:38:46 Mixed hyperlipide jaja 349904640 Active 2016 Celestina chang, [place] - [facility] 7 09:38:55 Pain of joint 12264021 Active 2016 Celestina Mitchell [place], [place] - [facility] 7 09:39:15 Gastroesoph ageal reflux disease without esophagitis 940426383 Active 2016 Celestina chang, [place] - [facility] 7 09:39:36 Scoliosis deformity of spine 658111609 Active 2016 Celestina chang, [place] - [facility] 7 09:39:44 Screening mammography Active 2016 Roni De Dios null, [place] - [facility] 7 10:13:08 Renewal of prescriptio n Completed 201602/24/2018 Brenda Murphy in null, [place] - [facility] 8 14:22:17 Anxiety 55119448 Active 2022 Stevan Goodwin PA-C [address], [place], [address], [place] - [facility] 3 21:25:43 Wheezing 42070626 Active 2023 Stevan Goodwin PA-C [address], [place], [address], [place] - [facility] 4 14:57:01 Hypertensiv e disorder 15735475 Active 2023 Stevan Goodwin PA-C [address], [place], [address], [place] - [facility] 4 09:33:13 Vitamin D deficiency 14562597 Active 2023 Stevan Goodwin PA-C [address], [place], [address], [place] - [facility] 4 11:49:52 Blood glucose outside reference range 299598121 Active 2023 Stevan Goodwin PA-C [address], [place], [address], [place] - [facility] 4 11:50:02 Notes:Some problems listed i n Document: #[id number] could not be added to this patient's chart. Please review this document and add these problems to the patient's chart manually as needed. Problem Notes None recorded. Procedures Surgical History Date Name Laterality Status Provider Name and Address Organization Details Recorded Time 8 Suture/Staple removal completed Celestina Mitchell [place] - [facility] 10/25/2017 13:16:50 8 Skin Lesion/Tag Removal- SS completed Celestina Mitchell [place] - [facility] 10/18/2017 19:17:30 Hip arthroscopy dx completed Celestina Mitchell [place] - [facility] 08/29/2016 09:41:58 Knee Surgery completed Celestina LUJAN - [facility] 08/29/2016 09:42:05 Imaging Results None recorded. Procedure Notes None recorded. Medical Equipment None Reported. Allergies Allergen ID Allergen Name Allergen Category Reaction Reaction Severity Criticality Documentation Date Start Date Code Code System Note Provider Name and Address Organization Details Recorded Time 11141 simvastat in medicatio n Not available Not available Not available 04/13/20162011 21125 RxNorm React ion: mylag ia; Not Available [facility] 6 08:29:03 99954 Zetia medicatio n myalgias (muscle pain) Not available Not available 04/13/20162011 50234 9 RxNorm React ion: sever e mylag ia; Not Available [facility] 6 09:08:57 Medications Name Sig Start Date Stop Date Status Note LastModified by Organization Details LastModified Time cyclobenz aprine 10 mg tablet TAKE 1 TABLET BY MOUTH ONCE DAILY NEEDED 08/22 completed Not Available Not Available Not Available atorvasta tin 40 mg tablet take 1 tablet (40 mg) by oral route once daily at bedtime active Not Available Not Available No t Available atorvasta tin 20 mg tablet take 1 tablet (20 mg) by oral route once daily at bedtime 11/17 completed atorvast atin 20 mg oral tablet;P rescribe Status: Prescrib ed on: 10/12/19 16 1:37PM;D iscontin ued Status: Disconti nued on: 11/18/19 16 6:51PM;U ser: neuss;Es t. Completi on: 11/11/19 16;Pharm acyVerif ied: 10/12/19 16 1:37PM Not Available Not Available Not Available Nexium 40 mg capsule,d elayed release take 1 capsule (40 mg) by oral route once daily for 30 days 09/07 completed Nexium 40 mg oral capsule, delayed release( DR/EC);P rescribe Status: Prescrib ed on: 03/13/20 13 9:17AM;D iscontin ued Status: Disconti nued on: 09/08/19 16 4:32PM;U ser: neuss;Es t. Completi on: 09/10/19 14;Pharm acyVerif ied: 03/13/20 13 9:17AM Not Available Not Available Not Available Motrin 100 mg tablet take 1 tablet by oral route every 6 hours as needed for 30 days 11/11 completed Motrin 100 mg oral tablet;R ecorded Status: Recorded on: 04/17/20 11 1:14PM;D iscontin ued Status: Disconti nued on: 11/12/19 14 5:53PM;U ser: bishopk; Indicati on: Osteoart hritis - (13.7159 00) Not Available Not Available Not Available acyclovir 800 mg tablet take 1 tablet (800 mg) by oral route 5 times per day for 7 days 09/21 completed acyclovi r 800 mg oral tablet;P rescribe Status: Prescrib ed on: 09/08/19 16 4:48PM;U ser: gored;Es t. Completi on: 09/22/19 16;Pharm acyVerif ied: 09/08/19 16 4:48PM Not Available Not Available Not Available bisoprolo l fumarate 10 mg tablet Take 1 tablet every day by oral route. 2023 active Not Available Not Available Not Avai lable Flagyl 250 mg tablet take 1 tablet (250 mg) by oral route 3 times per day for 5 days 04/06 completed Flagyl 250 mg oral tablet;P rescribe Status: Prescrib ed on: 10/27/19 14 3:41PM;D iscontin ued Status: Disconti nued on: 04/06/20 14 3:49PM;U ser: gored;Es t. Completi on: 11/01/19 14;Pharm acyVerif ied: 10/27/19 14 3:41PM Not Available Not Available Not Available lorazepam 0.5 mg tablet TAKE 1 TABLET BY MOUTH AT BEDTIME NEEDED FOR ANXIETY/ SLEEP active Not Available Not Available No t Available simvastat in 20 mg tablet take 1 tablet (20 mg) by oral route once daily in the evening 02/10 completed simvasta tin 20 mg oral tablet;R ecorded Status: Recorded on: 11/05/19 12 12:25PM; Disconti nued Status: Disconti nued on: 02/11/20 12 5:18PM;U ser: neuss;Es t. Completi on: 05/03/20 12;Indic ation: Mixed Hyperlip idemia - ( 00) Not Available Not Available Not Available buspirone 10 mg tablet Take 1 tablet 3 times a day by oral route for 30 days. active Not Available Not Available No t Available promethaz ine 25 mg tablet take 1 tablet (25 mg) by oral route every 6 hours as needed for 3 days prn nausea and vomiting 08/24 completed prometha zine 25 mg oral tablet;P rescribe Status: Prescrib ed on: 10/27/19 14 3:41PM;D iscontin ued Status: Disconti nued on: 08/24/19 15 5:37PM;U ser: gored;Es t. Completi on: 10/30/19 14;Pharm acyVerif ied: 10/27/19 14 3:41PM Not Available Not Available Not Available omeprazol e 20 mg capsule,d elayed release take 1 capsule (20 mg) by oral route once daily before a meal for 30 days 02/10 completed omeprazo le 20 mg oral capsule, delayed release( /EC);R ecorded Status: Recorded on: 08/29/19 10 12:02PM; Disconti nued Status: Disconti nued on: 02/11/20 12 5:18PM;U ser: calvom;[facility] on: 11/28/19 10;Print ed: 08/29/19 10 Not Available Not Available Not Available Baby Aspirin 81 mg chewable tablet chew 1 tablet by oral route QD for 100 days do not take if you are allergic to aspirin or its componen ts, or have question s of gastroin testinal intolera nce 11/11 completed Baby Aspirin 81 mg oral tablet,germaine murphy; Recorded Status: Recorded on: 07/22/19 12 1:39PM;D iscontin ued Status: Disconti nued on: 11/12/19 14 5:54PM;U ser: neuss;Jacqueline Archibald on: 07/26/19 15 Not Available Not Available Not Available Tylenol-C odeine #3 300 mg-30 mg tablet take 1 tablet by oral route every 6 hours as needed 11/11 completed Tylenol- Codeine #3 300-30 mg oral tablet;R ecorded Status: Recorded on: 09/01/19 13 7:30PM;D iscontin ued Status: Disconti nued on: 11/12/19 14 5:53PM;U ser: neuss;Jacqueline Archibald on: 12/31/19 13 Not Available Not Available Not Available albuterol sulfate HFA 90 mcg/actua tion aerosol inhaler INHALE 1 PUFF BY MOUTH EVERY 4 TO 6 HOURS NEEDED active Not Available Not Available No t Available Lomotil 2.5 mg-0.025 mg tablet take 1 tablet by oral route 2 times a day for 7 days 12/26 completed Lomotil 2.5-0.02 5 mg oral tablet;R ecorded Status: Recorded on: 12/20/19 16 4:55PM;U ser: neuss;Es elida. Completi on: 12/27/19 16 Not Available Not Available Not Available naproxen 500 mg tablet take 1 tablet (500 mg) by oral route 2 times per day with food active Not Available Not Available No t Available Benadryl Allergy 25 mg tablet take 1 tablet (25 mg) by oral route every 6 hours as needed for 30 days 11/11 completed Benadryl Allergy 25 mg oral tablet;R ecorded Status: Recorded on: 04/17/20 11 1:14PM;D iscontin ued Status: Disconti nued on: 11/12/19 14 5:53PM;U ser: bishopk; Indicati on: Allergic Rhinitis - () Not Available Not Available Not Available Fish Oil Concentra te 1,000 mg capsule take 1 capsule by oral route daily 11/11 completed Fish Oil Concentr ate 1,000 mg oral capsule; Recorded Status: Recorded on: 02/11/20 12 5:18PM;D iscontin ued Status: Disconti nued on: 11/12/19 14 5:53PM;U ser: neuss;Es t. Completi on: 03/12/20 12 Not Available Not Available Not Available Zetia 10 mg tablet take 1 tablet (10 mg) by oral route once daily 04/07 completed Zetia 10 mg oral tablet;R ecorded Status: Recorded on: 02/26/20 12 2:16PM;D iscontin ued Status: Disconti nued on: 04/07/20 12 8:47PM;U ser: neuss;Es t. Completi on: 08/24/19 13;Indic ation: Mixed Hyperlip idemia - () Not Available Not Available Not Available cyclobenz aprine 5 mg tablet Take 1 tablet by mouth twice daily as needed 2024 active Not Available Not Available Not Avai lable Glucosami ne Complex-M SM capsule take 1 capsule by oral route daily 11/11 completed Glucosam ine Complex- MSM Oral Capsule; Recorded Status: Recorded on: 04/17/20 11 1:14PM;D iscontin ued Status: Disconti nued on: 11/12/19 14 5:53PM;U ser: bishopk Not Available Not Available Not Available potassium gluconate 595 mg (99 mg) tablet take 1 tablet by oral route daily 11/11 completed josé cason gluconat e 595 mg (99 mg) oral tablet;R ecorded Status: Recorded on: 07/18/19 12 12:09PM; Disconti nued Status: Disconti nued on: 11/12/19 14 5:54PM;U ser: [email or web address] Not Available Not Available Not Available Pro Fe 180 mg iron capsule TAKE 1 CAPSULE BY MOUTH ONCE DAILY active Not Available Not Available No t Available Bystolic 5 mg tablet TAKE 1 TABLET BY MOUTH ONCE DAILY 08/01 completed Not Available Not Available Not Available Vitals Date Recorded Body weight Heart rate Oxygen saturation Oxygen saturation in Arterial blood by Pulse oximetry Body mass index (BMI) Body height Systolic And Diastolic Provider Name and Address Organization Details Last Updated DateTime 4 17207.4 9 g 84 /min 97 % 97 % 20.1 kg/m2 154.94 cm 120/72 mm[Hg] Gilma Moncada [facility] 4 14:05:16 Date Recorded Body height Body mass index (BMI) Body weight Heart rate Oxygen saturation Oxygen saturation in Arterial blood by Pulse oximetry Systolic And Diastolic Provider Name and Address Organization Details Last Updated DateTime 4 154.94 cm 20.6 kg/m2 21291.5 7 g 88 /min 98 % 98 % 118/70 mm[Hg] Gilma Moncada [facility] 4 08:52:05 Date Recorded Body height Provider Name an d Address Organization Details Last Updated DateTime 10/25/2017 154.94 cm Celestina Mitchell [facility] 2017 13:16:51 Date Recorded Body height Body mass index (BMI) Body weight Body temperature Heart rate Oxygen saturation Oxygen saturation in Arterial blood by Pulse oximetry Respiratory rate Systolic And Diastolic Provider Name and Address Organization Details Last Updated DateTime 8 154.94 cm 26.1 kg/m2 16405.7 5 g 98.1 [degF] 88 /min 96 % 96 % 18 /min 132/86 mm[Hg] Cleestina Mitchell [facility] 8 15:52:42 Date Recorded Pain severity - 0-10 verbal numeric rating [Score] - Reported Provider Name and Address Organization Details Last Updated DateTime 02/03/2018 0 Not Available [facility] 8 07:52:58 Date Recorded Body weight Provider Name an d Address Organization Details Last Updated DateTime 05/02/2023 47464.12 SETH Ramos [address], [place], [address], [place] - [facility] 05/05/2023 21:24:43 Date Recorded Heart rate Oxygen saturation Oxygen saturation in Arterial blood by Pulse oximetry Systolic And Diastolic Provider Name and Address Organization Details Last Updated DateTime 05/02/2023 76 /min 96 % 96 % 124/76 mm[Hg] Gilma Moncada [place] - [facility] 3 15:17:51 Social History Question Answer Notes LastModified by [employer] Details LastModified Time Tobacco Smoking Status Never Smoker Not Available [facility] 04/22/2020 03:13:29 Which Illicit Or Recreational Drugs Have You Used? Never [id number] Information not available 04/22/2020 Hard Of Hearing Or Deaf In One Or Both Ears? No Information not available 08/29/2016 Legally Blind In One Or Both Eyes? No Information no t available 08/29/2016 Live Alone Or With Others? With Others [email or web address] Information not available 08/29/2016 What Was The Date Of Your Most Recent Tobacco Screening? 08/01/2023 [email or web address] Information not available 08/01/2023 What Is Your Relationship Status? Domestic Partner [id number] Information not available 04/22/2020 Smoke Alarm In Home Yes [email or web address] Information not available 08/29/2016 Has Tobacco Cessation Counseling Been Provided? Yes [email or web address] Information not available 05/02/2023 On What Date Was Tobacco Cessation Counseling Provided? 08/01/2023 [email or web address] Information not available 08/01/2023 Sex: Female Functional Status Question Answer Note LastModified by [employer] Details LastModified Time What is your level of alcohol consumption? None [id number] Information not available 04/22/2020 Are you currently employed? No [id number] Information not available 04/22/2020 Are you able to care for yourself independently? 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 None [id number] Information not available 04/22/2020 Mental Status None recorded. Family History Relationship Description Onset Age of this Age Resolved Age Notes LastModified by Organization Details LastModified Time Unspecified Relation Malignant neoplasm of breast [email or web address] Not available 2016 09:40:35 Unspecified Relation Coronary arterioscler osis Not available 2016 09:40:44 Unspecified Relation Hypertensive disorder [email or web address] Not available 2016 09:40:57 Medical History No medical history recorded. Gynecological HistoryNo gynecological history recorded. Obstetrics History GPAL:G 0 P 0 0 0 0 Immunizations Vaccine Type Date Status Note Provider Nam e and Address Organization Details Recorded Time influenza, unspecified formulation 1 completed Not Available [facility] 08/22/2023 08:36:52 COVID-19, mRNA, LNP-S, PF, 100 mcg/0.5mL dose or 50 mcg/0.25mL dose 1 completed TAI Holliday - [facility] 05/02/2023 15:12:37 COVID-19, mRNA, LNP-S, PF, 100 mcg/0.5mL dose or 50 mcg/0.25mL dose completed TAI Holliday - [facility] 05/02/2023 15:12:38 COVID-19, mRNA, LNP-S, PF, 100 mcg/0.5mL dose or 50 mcg/0.25mL dose 1 completed TAI Holliday - [facility] 05/02/2023 15:12:38 Past Encounters Encounter ID Performer Location Encounter Start Date Encounter Closed Date Diagnosis/Indication Diagnosis SNOMED-CT Code Diagnosis ICD10 Code Diagnosis IMO Codes Diagnosis Note [id number] Roni De Dios MD [facility] [address] [place] [address] [place] [address] 08/29/2016 09:09:37 08/29/2016 10:24:20 Arthritis 9865124 M19.90 Pain of joint 56529030 M 25.50 Gouty arthropathy 522411 008 M10.09 Essential hypertension 81127300 I10 Scoliosis deformity of spine 773047348 M41.9 Screening mammography 24 800469 Z12.31 Renewal of prescription 177234191 Z76.0 [id number] Roni De Dios MD [address] [place] [address] 10/11/2017 13:54:41 10/11/2017 16:26:44 Scoliosis deformity of spine 474279464 M41.9 Essential hypertension 82475888 I10 Mixed hyperlipidemia 267 250368 E78.2 Spasm 65037607 R25.2 [id number] Roni De Dios MD [address] [place] [address] 10/18/2017 17:28:48 10/21/2017 09:06:40 Neoplasm of skin 693906657 D49.2 [id number] Roni De Dios MD [address] [place] [address] 10/25/2017 11:54:12 10/25/2017 12:47:34 Removal of shayy 80473531 Z48.02 [id number] Roni De Dios MD [address] [place] [address] 02/03/2018 15:41:48 02/03/2018 17:39:20 Body mass index 25-29 - overweight 187437676 Z68.26 Anxiety 67025571 F41.9 Essential hypertension 96080549 I10 Pain of joint 46139591 M 25.50 Mixed hyperlipidemia 267 011463 E78.2 [id number] Stevan Goodwin PA-C [address] [address] 05/02/2023 14:39:16 05/02/2023 16:07:35 Essential hypertension 64505904 I10 Check BP at home. Try to keep daily diary. If SBP >170 or if DBP > 100 call clinic, MD, or seek help. Dangers of high BP discussed. I also recommende d to reduce dietary sodium intake to less than 100 mEq (2.3 g of sodium or 6 g of sodium chloride)/ day. Discussed weight loss, DASH diet and exercise program as lifestyle changes to help control BP. Cautioned to watch for sxs such as chest pain, vision changes, TAY, or SOA and alert clinic or ER if present. Taking med ication for chronic disease 4914581211 85643 Z76.89 refill medication s Anxiety 95114640 F41.9 [id number] [place] [address] 08/01/2023 13:46:09 08/01/2023 15:19:39 Gastroesophageal reflux disease without esophagitis 648315543 K21.9 Mixed hyperlipidemia 267 324013 E78.2 Anxiety 47643213 F41.9 Essential hypertension 06625834 I10 Check BP at home. Try to keep daily diary. If SBP >170 or if DBP > 100 call clinic, MD, or seek help. Dangers of high BP discussed. I also recommende d to reduce dietary sodium intake to less than 100 mEq (2.3 g of sodium or 6 g of sodium chloride)/ day. Discussed weight loss, DASH diet and exercise program as lifestyle changes to help control BP. Cautioned to watch for sxs such as chest pain, vision changes, TAY, or SOA and alert clinic or ER if present. Body mass index 20-24 - normal 521345615 Z68.20 Bereavement 07054592 Z63 .4 Taking med ication for chronic disease 3524598333 10872 Z76.89 Wheezing 61373967 R06.2 Endocrine/ metabolic screening 886241858 Z13.228 Financial insecurity 087 2250777 Z59.86 [id number] Stevan Goodwin PA-C [address] [address] 08/22/2023 08:36:09 08/22/2023 10:04:11 Gastroesophageal reflux disease without esophagitis 079117938 K21.9 Mixed hyperlipidemia 267 512782 E78.2 Taking med ication for chronic disease 4928763583 05044 Z76.89 Spasm 19124165 R25.2 Anxiety 52207130 F41.9 Due to the above named individual 's conditions , they would benefit from having the support of a information systems security developer animal in the residence. This can help alleviate difficulti es and symptoms. It is my opinion that a information systems security developer animal can help with symptoms. There are multiple sources corroborat ing the therapeuti c benefits of information systems security developer animals. Upon request, our office can share citations to relevant studies. We would be happy to answer any questions, do not hesitate to contact our office ).--let jarvis Essential hypertension 85117192 I10 Check BP at home. Try to keep daily diary. If SBP >170 or if DBP > 100 call clinic, MD, or seek help. Dangers of high BP discussed. I also recommende d to reduce dietary sodium intake to less than 100 mEq (2.3 g of sodium or 6 g of sodium chloride)/ day. Discussed weight loss, DASH diet and exercise program as lifestyle changes to help control BP. Cautioned to watch for sxs such as chest pain, vision changes, TAY, or SOA and alert clinic or ER if present. History of iron deficiency 797620050 Z86.39 Endocrine/ metabolic screening 368642782 Z13.228 Vitamin D deficiency 347 50049 E55.9 Blood gluc ose outside reference range 853213199 R73.09 Health Concerns Section Related Observation LastModified by Organization Detai ls LastModified Time None Recorded Concern Status LastModified by Organization Details LastModified Time None Recorded Advance Directives Directive None Recorded Payers Insurance Date Sequence Insurance Name Policy Number Policy Oliveira Covered Member ID Oliveira Member ID Guarantor Name 11/15/2023 1 [place]MEDICARE [place]PLACEMENT HMO) [id number] Shanelle Armenta Wood [id number] Shanelle Armenta Wood 11/20/2024 2 MEDICAID-[facility] - FFS/TRADITIONA L Shanelle Armenta Wood [id number] Shanelle Armenta Wood 05/02/2023 1 [place] Shanelle Kathi Wood [id number] Shanelle A Wood 05/02/2023 NGS NATIONAL - MEDICARE [facility] (MEDICARE) Shanelle A Wood [id number] Shanelle Armenta Wood Notes Date Note Type Note Provider Name and Address Organization Details Recorded Time 8 text/html suture removal x 2 stitches Brenda Arenas [facility], [place] - [facility] 11/22/2017 11:11:06 8 text/html Care Management - HypertensionReported by PatientHPIFor self care, patient reportsunder emotional stress( of significant others x-). For prognosis, patient reportsexpected outcome: no changeandprognosis: good. For severity, patient reportssymptoms are improving. For associated symptoms, patient reportsno dizziness,no lightheadedness,no chest pain,no shortness of breath,no palpitations,no edema,no calf muscle cramps,no blurred vision,no confusion,no headaches, andno fatigue. Care Management - HyperlipidemiaReported by PatientHPIFor control, patient reportsnot at goalbut reportsimproving. For prognosis, patient reportsexpected outcome: improveandprognosis: good. For self care, patient reportsusing a beta eddie. For complications, patient reportsno coronary artery disease,no heart attack,no cardiovascular disease,no pancreatitis, andno stroke. Brenda chang, [place] - [facility] 02/24/2018 14:29:33 3 text/html Patient presents to office as new patient to establish care. Patient is former patient of Dr. De Dios, has given permission to obtain records from office. Patient has hx of HTN, monitors bp on occasion, states has been WNL. Patient denies any issues this visit. Pradeep prior plate in back from spinal fusion at Health Maintenance: -discuss at FUFlu:Covid:Tdap (Q10):Shingles (50+):Pneumonia (65+):Colon Cancer Screening (45+):Smoker:(55+ w/ >30pck yr hx) LDCT: AAA (65+):PSA: Women's HealthPap smear:Mammogram (>40):DEXA scan (>65): DMEye exam:Foot Exam: Stevan Goodwin PA-C [address], [place], [address], [place] - [facility] 05/05/2023 21:27:16 4 text/html Patient presents to office for follow up. Patient has hx of HTN, hyperlipidemia, anxiety, and GERD.Patient reports significant other on Saturday related to cardiac issues. Patient reports SO passed at home, pt states passing of SO has increased patients anxiety. Patient reports she will need medications refilled, will have labs drawn at another date, patient reports she is not fasting this visit. Patient reports she has not monitored blood pressure at home. Reports anxiety has been increased due to SO passing; Patient denies suicidal ideation, homicidal ideation, paranoia, or hallucinations. Has increased financial concerns. Is open to counseling. Feels like buspirone is helpful. Reports SO health had declined over several days; repeatedly denied being taken to hospital for evaluation due to not wanting to in the hospital and fear of covid per pt. Pt denies chest pain, SOA, difficulty eating or drinking, changes in bathroom habits, syncope/presyncope, or any other concerns. LN:Patient presents to office as new patient to establish care. Patient is former patient of Dr. De Dios, has given permission to obtain records from office. Patient has hx of HTN, monitors bp on occasion, states has been WNL. Patient denies any issues this visit. Pradeep prior plate in back from spinal fusion at Health Maintenance: -discuss at FUFlu:Covid:Tdap (Q10):Shingles (50+):Pneumonia (65+):Colon Cancer Screening (45+):Smoker:(55+ w/ >30pck yr hx) LDCT: AAA (65+):PSA: Women's HealthPap smear:Mammogram (>40):DEXA scan (>65): DMEye exam:Foot Exam: Stevan Goodwin PA-C [address], [place], [address], [place] - [facility] 08/01/2023 20:27:19 4 text/html Patient presents to office for follow up. Patient has hx of anxiety disorder, needs refill on Buspar, states anxiety is well controlled with current medication. Patient states she has had added stress with the recent loss of significant other, states she will be moving into an apartment soon, would like letter stating her dog is for emotional support. Pt denies chest pain, SOA, difficulty eating or drinking, changes in bathroom habits, syncope/presyncope, or any other concerns. [facility]:Flu: DeclinesCovid:DeclinesTdap (Q10):DeclinesShingles (50+):Pneumonia (65+):Colon Cancer Screening (45+):Smoker:(55+ w/ >30pck yr hx) LDCT: Women's HealthPap smear:Mammogram (>40):DEXA scan (>65): LN:Patient presents to office for follow up. Patient has hx of HTN, hyperlipidemia, anxiety, and GERD.Patient reports significant other on Saturday related to cardiac issues. Patient reports SO passed at home, pt states passing of SO has increased patients anxiety. Patient reports she will need medications refilled, will have labs drawn at another date, patient reports she is not fasting this visit. Patient reports she has not monitored blood pressure at home. Reports anxiety has been increased due to SO passing; Patient denies suicidal ideation, homicidal ideation, paranoia, or hallucinations. Has increased financial concerns. Is open to counseling. Feels like buspirone is helpful. Reports SO health had declined over several days; repeatedly denied being taken to hospital for evaluation due to not wanting to in the hospital and fear of covid per pt. Pt denies chest pain, SOA, difficulty eating or drinking, changes in bathroom habits, syncope/presyncope, or any other concerns. Stevan Goodwin PA-C [address], [place], [address], [place] [facility] 09/20/2023 11:51:08 OBGyn Episode No OBEpisode recorded.
== END 2025-05-13 23:59 ==
LOC: LAB.DROPOF 05-17 10:21
PROVIDERS: PCP Family Medicine; Visit Provider Family Medicine
DX: D50.9 Iron deficiency anemia, unspecified (principal); I10 Essential (primary) hypertension
CPT/HCPCS: 80053; 80061; 83540; 83550; 85025